=== PATIENT | female | born 1975 | race Caucasian/White ===

== ENCOUNTER 2017-07-21 21:12 | Emergency (ER) | payer BC, OTHER ==
--- NOTE | 2017-07-21 21:46 | RAD ---
LEFT LEG 07/21/17 The tibia and fibula appear intact. No gross fractures were identified. IMPRESSION: No acute findings. POS: HOME
[2017-07-21] MEDS ORDERED: HYDROcodone/Acetaminophen 5/325 mg Tablet ONE (22:02)
== END 2017-07-21 22:09 | disposition home or self-care (01) ==
LOC: BURERS 21:12
DX: S80.12XA Contusion of left lower leg, initial encounter (principal); S80.11XA Contusion of right lower leg, initial encounter; V40.5XXA Car driver injured in collision with pedestrian or animal in traffic accident, initial encounter